=== PATIENT | male | born 1990 | race American Indian/Alaskan Native ===

== ENCOUNTER 2018-12-27 11:51 | Emergency (ER) | payer OTHER ==
--- NOTE | 2018-12-27 12:04 | EDM.PDOC ---
ED HPI GENERAL MEDICAL PROBLEM - General Stated Complaint: VIA [facility] Time Seen by Provider: 12/27/18 12:00 Source of Information: Reports: Patient, RN Notes Reviewed History Limitations: Reports: No Limitations - History of Present Illness INITIAL COMMENTS - FREE TEXT/NARRATIVE: 28-year-old male came up from [place] to get detox treatment. He was evaluated at [facility] last night and sent to [place], arriving at 5 AM. He feels he is "sicker than anyone else" so wanted to be admitted to the hospital and insisted he be sent in. He is vomiting the medicine they are giving him. No hallucinations, no unstable vital signs at this point. Onset: Unknown/Unsure Associated Symptoms: Reports: Nausea/Vomiting, Other (Abdominal cramps) Abdominal Pain Score (Numeric/FACES): 3 - Related Data Allergies Allergy/AdvReac Type Severity Reaction Status Date / Time azithromycin [From Zithromax] Allergy Cannot Verified 12/27/18 12:17 Remember Home Meds: Home Meds chlordiazePOXIDE HCl [Chlordiazepoxide HCl] 1 tab PO TID PRN 12/27/18 [History] ED ROS GENERAL - Review of Systems Review Of Systems: See Below Constitutional: Reports: Malaise, Decreased Appetite. Denies: Fever, Chills HEENT: Reports: No Symptoms Respiratory: Denies: Shortness of Breath Cardiovascular: Denies: Chest Pain GI/Abdominal: Reports: Abdominal Pain, Nausea, Vomiting Neurological: Reports: No Symptoms Psychiatric: Reports: Anxiety ED EXAM, GENERAL - Physical Exam Exam: See Below Exam Limited By: No Limitations General Appearance: Alert, No Apparent Distress (Neck distress but looks uncomfortable) Eye Exam: Bilateral Eye: Normal Inspection (No jaundice) Respiratory/Chest: No Respiratory Distress Cardiovascular: Regular Rate, Rhythm. No: Tachycardia GI/Abdominal: Normal Bowel Sounds, Tender (Some tenderness to palpation especially across the upper abdomen) Neurological: Alert, Oriented Psychiatric: Anxious Skin Exam: Warm, Dry Course - Vital Signs Last Recorded V/S: Last Vital Signs Temp 97.0 F 12/27/18 12:08 Pulse 62 12/27/18 12:08 Resp 24 H 12/27/18 12:08 BP 109/92 H 12/27/18 12:08 Pulse Ox 98 12/27/18 12:08 - Orders/Labs/Meds Meds: Medications Discontinued Medications Generic Name Dose Route Start Last Admin Trade Name Miguel Angel PRCindy Reason Stop Dose Admin Prochlorperazine Edisylate 10 mg 12/27/18 12:36 12/27/18 12:42 Compazine IM 12/27/18 12:37 10 mg ONETIME ONE Administration - Re-Assessments/Exams Free Text/Narrative Re-Assessment/Exam: 12/27/18 12:41 Explained the patient that he is physically stable at this time, if he does develop alcohol withdrawal serious enough that they can't handle at the detox center they will send him back. I discussed this with Dr. Arreguin and he wants him to have 10 mg of IM Compazine but return for inpatient detox instead of hospitalization at this point. 12/27/18 13:06 Patient was in the emergency room for over 1 hour and showed no nausea or vomiting while in the emergency room. He continued to be stable. There is no reason why detox at a treatment center can't be attempted first, and if he worsens or becomes too difficult to handle at the detox center they can send him back. Departure - Departure Time of Disposition: 12:55 Disposition: DC/Tfer to Other 70 Clinical Impression: Alcohol abuse - Discharge Information Instructions: Alcohol Use Disorder Referrals: PCP,None [Primary Care Provider] - Forms: ED Department Discharge Care Plan Goals: Return to [facility] to continue your detox treatment per protocol.
[2018-12-27] MEDS ORDERED: Prochlorperazine 10 MG/2 ML SDV IM ONE (12:36)
== END 2018-12-27 12:55 | disposition other institution (70) ==
LOC: JP.ED 11:51
DX: F10.10 Alcohol abuse, uncomplicated (principal); R10.10 Upper abdominal pain, unspecified; Z88.1 Allergy status to other antibiotic agents
CPT/HCPCS: 96372; 99284; J0780

== ENCOUNTER 2019-05-18 13:37 | Emergency (ER) | payer MEDICAID, OTHER ==
--- NOTE | 2019-05-18 14:19 | EDM.PDOCBH ---
ED HPI GENERAL MEDICAL PROBLEM - General Chief Complaint: Drug or Alcohol Abuse Stated Complaint: FROM [facility] Time Seen by Provider: 05/18/19 14:00 Source of Information: Reports: Patient, EMS History Limitations: Reports: No Limitations - History of Present Illness INITIAL COMMENTS - FREE TEXT/NARRATIVE: 28-year-old was placed in [place] detox yesterday from [place] who today asked to be sent back to the hospital because he was nauseated and "throwing up blood". This is a recurring pattern of behavior for this patient, he gets admitted and then requests to leave and get transferred somewhere else. His records were obtained from [facility], he was admitted on 13 May and left AMA on the , returned on 17 May with a blood alcohol of 0.277 and positive for methamphetamines. He has to be treated at detox, but has been there less than a day and is now leaving. Associated Symptoms: Reports: Nausea/Vomiting Abdomen Pain Score (Numeric/FACES): 4 - Related Data Allergies Allergy/AdvReac Type Severity Reaction Status Date / Time azithromycin [From Zithromax] Allergy Cannot Verified 05/18/19 13:43 Remember Home Meds: Home Meds chlordiazePOXIDE HCl [Chlordiazepoxide HCl] 1 tab PO TID PRN 12/27/18 [History] Past Medical History Respiratory History: Reports: Asthma Gastrointestinal History: Reports: GERD Neurological History: Reports: Seizure Psychiatric History: Reports: Addiction, Anxiety, Panic Attack, Suicide Attempt , Suicidal Ideation - Infectious Disease History Infectious Disease History: Reports: Chicken Pox - Past Surgical History GI Surgical History: Reports: EGD Social & Family History - Tobacco Use Smoking Status *Q: Current Every Day Smoker Years of Tobacco use: 10 Packs/Tins Daily: 0.5 - Caffeine Use Caffeine Use: Reports: Coffee - Recreational Drug Use Recreational Drug Use: Yes Drug Use in Last 12 Months: Yes Recreational Drug Type: Reports: Marijuana/Hashish, Methamphetamine Recreational Drug Use Frequency: Monthly ED ROS GENERAL - Review of Systems Review Of Systems: See Below Constitutional: Reports: Malaise, Decreased Appetite. Denies: Fever, Chills Respiratory: Denies: Shortness of Breath Cardiovascular: Denies: Chest Pain GI/Abdominal: Reports: Abdominal Pain, Nausea, Vomiting Skin: Reports: No Symptoms Psychiatric: Reports: Anxiety ED EXAM, BEHAVIORAL HEALTH - Physical Exam Exam: See Below Exam Limited By: No Limitations General Appearance: Alert, No Apparent Distress Eye Exam: Bilateral Eye: Normal Inspection (No jaundice) Head: Atraumatic Respiratory/Chest: No Respiratory Distress, Lungs Clear Cardiovascular: Regular Rate, Rhythm. No: Tachycardia GI/Abdominal: Soft, Tender (Reacts with tenderness to palpation across the upper abdomen) COURSE, BEHAVIORAL HEALTH COMP - Course Vital Signs: Last Vital Signs Temp 96.4 F 05/18/19 14:00 Pulse 67 05/18/19 14:00 Resp 20 05/18/19 14:00 BP 119/59 L 05/18/19 14:00 Pulse Ox 100 05/18/19 14:00 Orders, Labs, Meds: Laboratory Tests 05/18/19 05/18/19 Range/Units 13:59 13:59 WBC 7.8 (4.5-11.0) K/uL RBC 5.41 (4.30-5.90) M/uL Hgb 15.3 H (12.0-15.0) g/dL Hct 46.0 (40.0-54.0) % MCV 85 (80-98) fL MCH 28 (27-31) pg MCHC 33 (32-36) % Plt Count 231 (150-400) K/uL Neut % (Auto) 64 (36-66) % Lymph % (Auto) 22 L (24-44) % [place] % (Auto) 12 H (2-6) % Eos % (Auto) 2 (2-4) % Baso % (Auto) 1 (0-1) % Lipase 160 (73-393) U/L Re-Assessment/Re-Exam: The detox center refuses to take the patient back because of previous similar episodes. Patient called someone who came and got him and give him a ride. Departure - Departure Time of Disposition: 14:25 Disposition: Home, Self-Care 01 Clinical Impression: Alcohol abuse - Discharge Information Instructions: Alcohol Use Disorder Referrals: PCP,None [Primary Care Provider] - Forms: ED Department Discharge Care Plan Goals: 40 mg of omeprazole daily, and avoid further intake of alcohol. Sepsis Event Note - Evaluation Sepsis Screening Result: No Definite Risk - Focused Exam Vital Signs: Vital Signs Temp Temp Pulse Resp BP Pulse Ox 05/18/19 14:00 96.4 F 96.4 F 64 16 119/59 L 100 Date Exam was Performed: 05/18/19 Time Exam was Performed: 14:23
== END 2019-05-18 14:25 | disposition home or self-care (01) ==
LOC: JP.ED 13:37
DX: F10.10 Alcohol abuse, uncomplicated (principal); F17.210 Nicotine dependence, cigarettes, uncomplicated; J45.909 Unspecified asthma, uncomplicated; Z88.1 Allergy status to other antibiotic agents
CPT/HCPCS: 36415; 83690; 85025; 99282; 99284

== ENCOUNTER 2022-04-05 22:59 | Emergency (ER) | payer OTHER | END 2022-04-05 23:36 | LOC: JP.ED 22:59 | DX: F10.120 Alcohol abuse with intoxication, uncomplicated (principal); J45.909 Unspecified asthma, uncomplicated; Z02.89 Encounter for other administrative examinations; Z72.0 Tobacco use; Z88.1 Allergy status to other antibiotic agents | CPT/HCPCS: 99283 ==

== ENCOUNTER 2022-04-06 18:21 | Emergency (ER) | payer SELFPAY ==
[~2022-04-06 18:21] MED LIST: LORazepam 1 MG Tab PO SCH
[2022-04-06] MEDS ORDERED: LORazepam 1 MG Tab ONE (20:15)
== END 2022-04-06 20:50 | disposition home or self-care (01) ==
LOC: JP.ED 18:21
DX: F10.139 Alcohol abuse with withdrawal, unspecified (principal); Z88.1 Allergy status to other antibiotic agents; Z72.0 Tobacco use
CPT/HCPCS: 99284; A9270

== ENCOUNTER 2022-08-24 21:37 | Emergency (ER) | payer SELFPAY | END 2022-08-24 22:46 | LOC: JP.ED 21:37 | DX: F10.220 Alcohol dependence with intoxication, uncomplicated (principal); F17.210 Nicotine dependence, cigarettes, uncomplicated; J45.909 Unspecified asthma, uncomplicated; Z88.1 Allergy status to other antibiotic agents | CPT/HCPCS: 99283 ==

== ENCOUNTER 2022-09-03 15:47 | Emergency (ER) | payer SELFPAY ==
[2022-09-03] MEDS ORDERED: diphenhydrAMINE 50 MG/ML SDV IM ONE (15:50)
[2022-09-03] MEDS ORDERED: Haloperidol Lactate 5 MG/ML SDV IM ONE (15:50)
[2022-09-03 16:15] LABS: BASOPHILS ABSOLUTE AUTO 0.06 K/uL (0.00-0.10); BASOPHILS PERCENT AUTO 0.8 % (0.1-1.3); EOSINOPHILS ABSOLUTE AUTO 0.06 K/uL (0.00-0.40); EOSINOPHILS PERCENT AUTO 0.8 % (0.0-5.4); HEMATOCRIT 42.9 % (38.4-49.7); HEMOGLOBIN 14.5 g/dL (12.9-16.9); IMMATURE GRAN ABSOLUTE AUTO 0.03 K/uL (0.00-0.23); IMMATURE GRAN PERCENT AUTO 0.4 % (0.0-0.7); LYMPHOCYTES ABSOLUTE AUTO 2.79 K/uL (0.8-3.3); LYMPHOCYTES PERCENT AUTO 36.2 % (11.4-47.7); MEAN CORPUSCULAR HEMOGLOBIN 29.3 pg (31.6-35.5); MEAN CORPUSCULAR HGB CONC 33.8 g/dL (31.6-35.5); MEAN CORPUSCULAR VOLUME 86.7 fL (81.4-99.0); MONOCYTES ABSOLUTE AUTO 0.76 K/uL (0.20-0.90); MONOCYTES PERCENT AUTO 9.9 % (3.3-12.6); NEUTROPHILS PERCENT AUTO 51.9 % (40.0-78.1); PLATELET COUNT,PLT 302 K/uL (130-375); RED BLOOD CELL COUNT 4.95 M/uL (4.14-5.76); WHITE BLOOD CELL COUNT,WBC 7.7 K/uL (3.2-11.0)
[2022-09-03 16:43] LABS: A/G RATIO 1.1 (1.2-2.2); ALANINE AMINOTRANSFERASE,ALT 65 U/L (12-78); ALBUMIN 3.9 g/dL (3.4-5.0); ALKALINE PHOSPHATASE 71 U/L (46-116); ASPARTATE AMNIOTRANSFERASE,AST 211 U/L (15-37); BILIRUBIN TOTAL 0.7 mg/dL (0.2-1.0); BLOOD UREA NITROGEN,BUN 12 mg/dL (7-18); CALCIUM 8.9 mg/dL (8.5-10.1); CARBON DIOXIDE,CO2 27 mmol/L (21-32); CHLORIDE,CL 103 mmol/L (100-108); CREATININE 0.9 mg/dL (0.8-1.3); EST CRCL DRUG DOSING (CG) 128.14 mL/min; ESTIMATED GFR 116 mL/min (>60); GLUCOSE RANDOM 110 mg/dL (74-106); POTASSIUM,K 3.4 mmol/L (3.6-5.2); PROTEIN TOTAL,TP 7.6 g/dL (6.4-8.2); SODIUM,NA 140 mmol/L (140-148)
[2022-09-03 16:44] LABS: ANION GAP 13.4 mmol/L (5.0-14.0)
[2022-09-03 22:51] LABS: AMPHETAMINES SCREEN, URINE NEGATIVE (NEGATIVE); BARBITURATE SCREEN,URINE PRESUMPTIVE POSITIVE (NEGATIVE); BENZODIAZEPINES SCREEN,URINE PRESUMPTIVE POSITIVE (NEGATIVE); METHADONE SCREEN, URINE NEGATIVE (NEGATIVE); METHAMPHETAMINES SCREEN, URINE NEGATIVE (NEGATIVE); OXYCODONE SCREEN,URINE NEGATIVE (NEGATIVE); PROPOXYPHENE SCREEN,URINE NEGATIVE (NEGATIVE); THC SCREEN,URINE 50 NG/ML NEGATIVE (NEGATIVE)
[2022-09-04] MEDS ORDERED: LORazepam 1 MG Tab PO ONE (04:46)
== END 2022-09-04 06:05 | disposition home or self-care (01) ==
LOC: JP.ED 15:47
DX: R45.1 Restlessness and agitation (principal); F10.920 Alcohol use, unspecified with intoxication, uncomplicated; J45.909 Unspecified asthma, uncomplicated; Z88.1 Allergy status to other antibiotic agents; Z20.822 Contact with and (suspected) exposure to COVID-19
CPT/HCPCS: 36415; 80053; 80305; 80307; 84443; 85025; 87635; 96372; 99285; A9270; J1200; J1630; U0002

== ENCOUNTER 2023-03-20 08:32 | Emergency (ER) | payer OTHER ==
[2023-03-20] MEDS ORDERED: LORazepam 2 MG/ML SDV IVPUSH ONE (08:58)
[2023-03-20] MEDS ORDERED: MVI, Adult with Vitamin K 10 ML, Thiamine 200 MG, Folic Acid 1 MG, Magnesium Sulfate 2 ... IV ONE ×5 (08:58)
[2023-03-20] MEDS ORDERED: Sodium Chloride 0.9% 10 ML Syringe FLUSH PRN (09:00)
[2023-03-20] MEDS ORDERED: Pantoprazole 40 MG Vial IVPUSH ONE (09:01)
[2023-03-20 09:14] LABS: BASOPHILS ABSOLUTE AUTO 0.03 K/uL (0.00-0.10); BASOPHILS PERCENT AUTO 0.4 % (0.1-1.3); EOSINOPHILS ABSOLUTE AUTO 0.29 K/uL (0.00-0.40); EOSINOPHILS PERCENT AUTO 4.2 % (0.0-5.4); IMMATURE GRAN ABSOLUTE AUTO 0.03 K/uL (0.00-0.23); IMMATURE GRAN PERCENT AUTO 0.4 % (0.0-0.7); LYMPHOCYTES ABSOLUTE AUTO 1.07 K/uL (0.8-3.3); LYMPHOCYTES PERCENT AUTO 15.6 % (11.4-47.7); MEAN CORPUSCULAR HGB CONC 34.2 g/dL (31.6-35.5); MEAN CORPUSCULAR VOLUME 87.6 fL (81.4-99.0); MONOCYTES ABSOLUTE AUTO 0.58 K/uL (0.20-0.90); MONOCYTES PERCENT AUTO 8.5 % (3.3-12.6); NEUTROPHILS ABSOLUTE AUTO 4.85 K/uL (1.0-7.6); NEUTROPHILS PERCENT AUTO 70.9 % (40.0-78.1); PLATELET COUNT,PLT 162 K/uL (130-375); RED BLOOD CELL COUNT 4.34 M/uL (4.14-5.76); WHITE BLOOD CELL COUNT,WBC 6.9 K/uL (3.2-11.0)
[2023-03-20 09:32] LABS: PROTHROMBIN TIME 9.8 sec (9.2-10.6)
[2023-03-20 09:36] LABS: ALANINE AMINOTRANSFERASE,ALT 26 U/L (12-78); ALBUMIN 3.6 g/dL (3.4-5.0); ALKALINE PHOSPHATASE 76 U/L (46-116); ASPARTATE AMNIOTRANSFERASE,AST 57 U/L (15-37); BILIRUBIN TOTAL 0.6 mg/dL (0.2-1.0); BLOOD UREA NITROGEN,BUN 12 mg/dL (7-18); CALCIUM 8.1 mg/dL (8.5-10.1); CARBON DIOXIDE,CO2 27 mmol/L (21-32); CHLORIDE,CL 103 mmol/L (100-108); CREATININE 0.7 mg/dL (0.8-1.3); EST CRCL DRUG DOSING (CG) 163.21 mL/min; ESTIMATED GFR 124 mL/min (>60); GLUCOSE RANDOM 91 mg/dL (74-106); POTASSIUM,K 3.7 mmol/L (3.6-5.2); PROTEIN TOTAL,TP 7.2 g/dL (6.4-8.2); SODIUM,NA 137 mmol/L (140-148)
[2023-03-20 09:46] LABS: ANION GAP 10.7 mmol/L (5.0-14.0)
== END 2023-03-20 10:35 ==
LOC: JP.ED 08:32
DX: F10.930 Alcohol use, unspecified with withdrawal, uncomplicated (principal); F17.210 Nicotine dependence, cigarettes, uncomplicated; Z88.1 Allergy status to other antibiotic agents
CPT/HCPCS: 36415; 80053; 80307; 85025; 85610; 96365; 96375; 99283; 99285-25; C9113; J2060; J3411; J3475; J3490; J7121

== ENCOUNTER 2023-08-27 14:04 | Inpatient (IN) | payer MEDICAID, OTHER ==
[2023-08-27 14:43] LABS: BASOPHILS ABSOLUTE AUTO 0.08 K/uL (0.00-0.10); BASOPHILS PERCENT AUTO 0.8 % (0.1-1.3); EOSINOPHILS PERCENT AUTO 2.9 % (0.0-5.4); HEMATOCRIT 40.2 % (38.4-49.7); HEMOGLOBIN 13.4 g/dL (12.9-16.9); IMMATURE GRAN ABSOLUTE AUTO 0.06 K/uL (0.00-0.23); IMMATURE GRAN PERCENT AUTO 0.6 % (0.0-0.7); LYMPHOCYTES ABSOLUTE AUTO 1.23 K/uL (0.8-3.3); LYMPHOCYTES PERCENT AUTO 11.8 % (11.4-47.7); MEAN CORPUSCULAR HGB CONC 33.3 g/dL (31.6-35.5); MEAN CORPUSCULAR VOLUME 83.9 fL (81.4-99.0); MONOCYTES ABSOLUTE AUTO 0.71 K/uL (0.20-0.90); MONOCYTES PERCENT AUTO 6.8 % (3.3-12.6); NEUTROPHILS ABSOLUTE AUTO 8.07 K/uL (1.0-7.6); NEUTROPHILS PERCENT AUTO 77.1 % (40.0-78.1); PLATELET COUNT,PLT 286 K/uL (130-375); RED BLOOD CELL COUNT 4.79 M/uL (4.14-5.76); WHITE BLOOD CELL COUNT,WBC 10.5 K/uL (3.2-11.0)
[2023-08-27] MEDS: Sodium Chloride 0.9% 10 ML Syringe FLUSH PRN (14:45)
[2023-08-27] MEDS: Sodium Chloride 0.9% 1,000 ML IV SCH (14:46)
[2023-08-27] MEDS: Prochlorperazine 10 MG/2 ML SDV IVPUSH ONE (15:00)
[2023-08-27 15:08] LABS: A/G RATIO 0.7 (1.2-2.2); ALANINE AMINOTRANSFERASE,ALT 28 U/L (12-78); ALBUMIN 3.4 g/dL (3.4-5.0); ALKALINE PHOSPHATASE 87 U/L (46-116); ANION GAP 13.7 mmol/L (5.0-14.0); ASPARTATE AMNIOTRANSFERASE,AST 27 U/L (15-37); BILIRUBIN TOTAL 1.1 mg/dL (0.2-1.0); BLOOD UREA NITROGEN,BUN 12 mg/dL (7-18); CALCIUM 8.5 mg/dL (8.5-10.1); CARBON DIOXIDE,CO2 27 mmol/L (21-32); CHLORIDE,CL 101 mmol/L (100-108); CREATININE 0.8 mg/dL (0.8-1.3); EST CRCL DRUG DOSING (CG) 142.81 mL/min; ESTIMATED GFR 119 mL/min (>60); GLUCOSE RANDOM 106 mg/dL (74-106); POTASSIUM,K 3.7 mmol/L (3.6-5.2); SODIUM,NA 138 mmol/L (140-148)
[2023-08-27] MEDS: LORazepam 2 MG/ML SDV IVPUSH ONE (15:52)
[2023-08-27] MEDS: Magnesium Sulfate/Water 2 GM in Premix Bag 1 BAG IV ONE (16:15)
[2023-08-27] MEDS ORDERED: LORazepam 2 MG/ML SDV IV SCH (16:56)
[2023-08-27] MEDS ORDERED: Ondansetron 4 MG/2 ML SDV IV PRN (16:56)
[2023-08-27] MEDS ORDERED: Haloperidol Lactate 5 MG/ML SDV IVPUSH PRN (16:56)
[2023-08-27] MEDS ORDERED: Magnesium Hydroxide 400 MG/5 ML Susp 30 ML Cup PO PRN (16:56)
[2023-08-27] MEDS ORDERED: Sennosides/Docusate Sodium 50-8.6 MG Tab PO PRN (16:56)
[2023-08-27] MEDS ORDERED: LORazepam 2 MG/ML SDV IV PRN (16:56)
[2023-08-27] MEDS: Pantoprazole 40 MG Vial IV ONE (17:46)
[2023-08-27] MEDS: MVI, Adult with Vitamin K 10 ML, Thiamine 100 MG, Folic Acid 1 MG, Magnesium Sulfate 3 ... IV ONE (17:51)
[2023-08-27] MEDS: LORazepam 1 MG Tab PO SCH (19:57)
[2023-08-27] MEDS: Gabapentin 100 MG Cap PO SCH (21:14)
[2023-08-27] MEDS: Melatonin 3 MG Tab PO SCH (21:14)
[2023-08-27] MEDS: Enoxaparin 40 MG/0.4 ML Syringe SUBCUT SCH (21:14)
[2023-08-27] MEDS: Magnesium Sulfate/Water 2 GM in Premix Bag 1 BAG IV SCH (22:04)
[2023-08-27] MEDS: NS + KCl 20mEq/L 1,000 ML IV SCH (22:06)
[2023-08-28 05:02] LABS: HEMATOCRIT 38.2 % (38.4-49.7); MEAN CORPUSCULAR HEMOGLOBIN 28.7 pg (31.6-35.5); MEAN CORPUSCULAR VOLUME 84.3 fL (81.4-99.0); RED BLOOD CELL COUNT 4.53 M/uL (4.14-5.76); WHITE BLOOD CELL COUNT,WBC 9.4 K/uL (3.2-11.0)
[2023-08-28 05:28] LABS: A/G RATIO 0.7 (1.2-2.2); ALANINE AMINOTRANSFERASE,ALT 26 U/L (12-78); ALBUMIN 2.8 g/dL (3.4-5.0); ALKALINE PHOSPHATASE 74 U/L (46-116); ASPARTATE AMNIOTRANSFERASE,AST 24 U/L (15-37); BILIRUBIN TOTAL 1.2 mg/dL (0.2-1.0); BLOOD UREA NITROGEN,BUN 10 mg/dL (7-18); CALCIUM 7.9 mg/dL (8.5-10.1); CARBON DIOXIDE,CO2 27 mmol/L (21-32); CHLORIDE,CL 102 mmol/L (100-108); CREATININE 0.6 mg/dL (0.8-1.3); EST CRCL DRUG DOSING (CG) 190.67 mL/min; ESTIMATED GFR 130 mL/min (>60); GLUCOSE RANDOM 111 mg/dL (74-106); POTASSIUM,K 3.6 mmol/L (3.6-5.2); PROTEIN TOTAL,TP 7.1 g/dL (6.4-8.2); SODIUM,NA 135 mmol/L (140-148)
[2023-08-28 05:30] LABS: ANION GAP 9.6 mmol/L (5.0-14.0)
[2023-08-28] MEDS: Pantoprazole 40 MG Tab.CR PO SCH (07:23)
[2023-08-28] MEDS: Folic Acid 1 MG Tab PO SCH (08:37)
[2023-08-28] MEDS: Thiamine 100 MG Tab PO SCH (08:37)
[2023-08-28] MEDS: Ketorolac 30 MG/ML SDV IVPUSH PRN (09:38)
[2023-08-28] MEDS: Ondansetron 4 MG Tab.DIS PO PRN (09:48)
[2023-08-28] MEDS: Triamcinolone Acetonide 0.1% Oint 15 GM Tube TOP SCH (10:02)
[2023-08-28] MEDS: Acetaminophen 325 MG Tab PO PRN (13:57)
== END 2023-08-28 17:43 | disposition home or self-care (01) | DRG 897 ==
LOC: JP.ED 14:04 → JP.ICU 16:24
PROVIDERS: ADMIT Internal Medicine; ATTEND Internal Medicine
DX: F10.931 Alcohol use, unspecified with withdrawal delirium (principal); R44.0 Auditory hallucinations; K21.9 Gastro-esophageal reflux disease without esophagitis; R44.1 Visual hallucinations; J45.909 Unspecified asthma, uncomplicated; F41.0 Panic disorder [episodic paroxysmal anxiety]; R56.9 Unspecified convulsions; E83.42 Hypomagnesemia; F17.210 Nicotine dependence, cigarettes, uncomplicated; Z88.1 Allergy status to other antibiotic agents
CPT/HCPCS: 36415; 80053; 80307; 83735; 85025; 85027; 93010; 96361; 96374; 96375; 99223; 99238; 99285-25; A9270-GY; C9113; J0780; J1650; J1885; J2060; J3411; J3475; J3480; J3490; J7030; Q0162

== ENCOUNTER 2023-11-01 11:07 | Emergency (ER) | payer MEDICAID, OTHER ==
[2023-11-01 15:12] LABS: AMPHETAMINES SCREEN, URINE PRESUMPTIVE POSITIVE (NEGATIVE); BARBITURATE SCREEN,URINE NEGATIVE (NEGATIVE); BENZODIAZEPINES SCREEN,URINE PRESUMPTIVE POSITIVE (NEGATIVE); METHADONE SCREEN, URINE NEGATIVE (NEGATIVE); METHAMPHETAMINES SCREEN, URINE PRESUMPTIVE POSITIVE (NEGATIVE); OXYCODONE SCREEN,URINE NEGATIVE (NEGATIVE); PROPOXYPHENE SCREEN,URINE NEGATIVE (NEGATIVE); THC SCREEN,URINE 50 NG/ML PRESUMPTIVE POSITIVE (NEGATIVE)
[2023-11-01 15:13] LABS: A/G RATIO 0.9 (1.2-2.2); ALANINE AMINOTRANSFERASE,ALT 46 U/L (12-78); ALBUMIN 3.7 g/dL (3.4-5.0); ALKALINE PHOSPHATASE 79 U/L (46-116); ANION GAP 9.5 mmol/L (5.0-14.0); ASPARTATE AMNIOTRANSFERASE,AST 42 U/L (15-37); BILIRUBIN TOTAL 0.5 mg/dL (0.2-1.0); BLOOD UREA NITROGEN,BUN 12 mg/dL (7-18); CALCIUM 8.5 mg/dL (8.5-10.1); CARBON DIOXIDE,CO2 31 mmol/L (21-32); CHLORIDE,CL 106 mmol/L (100-108); CREATININE 0.8 mg/dL (0.8-1.3); ESTIMATED GFR 119 mL/min (>60); GLUCOSE RANDOM 102 mg/dL (74-106); HEMATOCRIT 44.8 % (38.4-49.7); HEMOGLOBIN 15.2 g/dL (12.9-16.9); MEAN CORPUSCULAR HEMOGLOBIN 28.3 pg (31.6-35.5); MEAN CORPUSCULAR HGB CONC 33.9 g/dL (31.6-35.5); MEAN CORPUSCULAR VOLUME 83.3 fL (81.4-99.0); POTASSIUM,K 3.7 mmol/L (3.6-5.2); PROTEIN TOTAL,TP 7.8 g/dL (6.4-8.2); RED BLOOD CELL COUNT 5.38 M/uL (4.14-5.76); SODIUM,NA 146 mmol/L (140-148); WHITE BLOOD CELL COUNT,WBC 6.4 K/uL (3.2-11.0)
== END 2023-11-01 12:32 ==
LOC: JP.ED 11:08
DX: Z02.89 Encounter for other administrative examinations (principal)
CPT/HCPCS: 36415; 80053; 80305-QW; 80307; 85027; 99285

== ENCOUNTER 2023-11-01 15:33 | Emergency (ER) | payer MEDICAID, OTHER | END 2023-11-01 16:07 | disposition left against medical advice (07) | LOC: JP.ED 15:33 | DX: Z53.21 Procedure and treatment not carried out due to patient leaving prior to being seen by health care provider (principal) ==

== ENCOUNTER 2023-11-01 18:55 | Emergency (ER) | payer MEDICAID, OTHER ==
[2023-11-01 21:53] LABS: HEMATOCRIT 43.1 % (38.4-49.7)
[2023-11-01] MEDS: Pantoprazole 40 MG Tab.CR PO ONE (23:28)
[2023-11-02 01:49] LABS: HEMATOCRIT 42.7 % (38.4-49.7); HEMOGLOBIN 14.5 g/dL (12.9-16.9)
[2023-11-02] MEDS: Thiamine 100 MG Tab PO ONE (02:18)
[2023-11-02] MEDS: Multivitamins with Iron/Calcium/Folic Acid/Minerals Tab PO ONE (02:18)
[2023-11-02] MEDS: Folic Acid 1 MG Tab PO ONE (02:18)
[2023-11-02] MEDS: LORazepam 1 MG Tab PO ONE (02:18)
== END 2023-11-02 08:47 ==
LOC: JP.ED 18:55
DX: F15.10 Other stimulant abuse, uncomplicated (principal); F10.229 Alcohol dependence with intoxication, unspecified; J45.909 Unspecified asthma, uncomplicated; Z88.1 Allergy status to other antibiotic agents; Z88.8 Allergy status to other drugs, medicaments and biological substances
CPT/HCPCS: 36415; 80307; 85014; 85018; 86850; 86900; 86901; 99285; A9270

== ENCOUNTER 2024-03-07 20:27 | Emergency (ER) | payer MEDICAID ==
[2024-03-07 21:19] LABS: BASOPHILS ABSOLUTE AUTO 0.08 K/uL (0.00-0.10); BASOPHILS PERCENT AUTO 0.9 % (0.1-1.3); EOSINOPHILS ABSOLUTE AUTO 0.14 K/uL (0.00-0.40); EOSINOPHILS PERCENT AUTO 1.5 % (0.0-5.4); HEMATOCRIT 42.1 % (38.4-49.7); HEMOGLOBIN 14.2 g/dL (12.9-16.9); IMMATURE GRAN PERCENT AUTO 1.1 % (0.0-0.7); LYMPHOCYTES PERCENT AUTO 27.3 % (11.4-47.7); MEAN CORPUSCULAR HEMOGLOBIN 29.5 pg (31.6-35.5); MEAN CORPUSCULAR HGB CONC 33.7 g/dL (31.6-35.5); MEAN CORPUSCULAR VOLUME 87.5 fL (81.4-99.0); MONOCYTES ABSOLUTE AUTO 0.68 K/uL (0.20-0.90); MONOCYTES PERCENT AUTO 7.4 % (3.3-12.6); NEUTROPHILS ABSOLUTE AUTO 5.66 K/uL (1.0-7.6); NEUTROPHILS PERCENT AUTO 61.8 % (40.0-78.1); PLATELET COUNT,PLT 309 K/uL (130-375); RED BLOOD CELL COUNT 4.81 M/uL (4.14-5.76); WHITE BLOOD CELL COUNT,WBC 9.2 K/uL (3.2-11.0)
[2024-03-07 21:36] LABS: PROTHROMBIN TIME 10.4 sec (9.2-10.6)
[2024-03-07 21:40] LABS: ALANINE AMINOTRANSFERASE,ALT 23 U/L (12-78); ALBUMIN 3.6 g/dL (3.4-5.0); ALKALINE PHOSPHATASE 59 U/L (46-116); ANION GAP 9.3 mmol/L (5.0-14.0); ASPARTATE AMNIOTRANSFERASE,AST 16 U/L (15-37); BILIRUBIN TOTAL 0.3 mg/dL (0.2-1.0); BLOOD UREA NITROGEN,BUN 16 mg/dL (7-18); CALCIUM 8.7 mg/dL (8.5-10.1); CARBON DIOXIDE,CO2 29 mmol/L (21-32); CHLORIDE,CL 107 mmol/L (100-108); CREATININE 0.8 mg/dL (0.8-1.3); EST CRCL DRUG DOSING (CG) 141.46 mL/min; ESTIMATED GFR 118 mL/min (>60); GLUCOSE RANDOM 100 mg/dL (74-106); POTASSIUM,K 3.8 mmol/L (3.6-5.2); PROTEIN TOTAL,TP 7.3 g/dL (6.4-8.2); SODIUM,NA 145 mmol/L (140-148)
[2024-03-07] MEDS: Sodium Chloride 0.9% 1,000 ML IV SCH (21:45)
[2024-03-07] MEDS: LORazepam 2 MG/ML SDV IVPUSH ONE (21:49)
[2024-03-08] MEDS: Diazepam 2 MG Tab PO ONE (06:43)
== END 2024-03-08 07:00 | disposition left against medical advice (07) ==
LOC: JP.ED 20:27
DX: F10.239 Alcohol dependence with withdrawal, unspecified (principal); J45.909 Unspecified asthma, uncomplicated; Z88.1 Allergy status to other antibiotic agents
CPT/HCPCS: 36415; 80053; 85025; 85610; 96361; 96374; 99283; 99285; A9270; J2060; J7030

== ENCOUNTER 2024-06-11 14:27 | Emergency (ER) | payer MEDICAID | END 2024-06-11 15:47 | disposition home or self-care (01) | LOC: JP.ED 14:27 | DX: M23.52 Chronic instability of knee, left knee (principal); F17.210 Nicotine dependence, cigarettes, uncomplicated; Z79.899 Other long term (current) drug therapy; Z88.1 Allergy status to other antibiotic agents | CPT/HCPCS: 99283 ==

== ENCOUNTER 2024-06-11 21:46 | Emergency (ER) | payer MEDICAID ==
[2024-06-11] MEDS ORDERED: Lidocaine 1% with EPINEPHrine 1:100,000 20 ML MDV INJECT ONE (21:49)
[2024-06-11] MEDS: Alum Hydrox/Mag Hydrox/Simeth 15 ML, Lidocaine 2% 15 ML PO ONE (22:45)
[2024-06-11 22:49] LABS: BASOPHILS ABSOLUTE AUTO 0.07 K/uL (0.00-0.10); BASOPHILS PERCENT AUTO 0.7 % (0.1-1.3); EOSINOPHILS ABSOLUTE AUTO 0.22 K/uL (0.00-0.40); EOSINOPHILS PERCENT AUTO 2.3 % (0.0-5.4); HEMATOCRIT 39.7 % (38.4-49.7); HEMOGLOBIN 13.5 g/dL (12.9-16.9); IMMATURE GRAN ABSOLUTE AUTO 0.03 K/uL (0.00-0.23); IMMATURE GRAN PERCENT AUTO 0.3 % (0.0-0.7); LYMPHOCYTES ABSOLUTE AUTO 2.57 K/uL (0.8-3.3); LYMPHOCYTES PERCENT AUTO 27.2 % (11.4-47.7); MEAN CORPUSCULAR HEMOGLOBIN 29.7 pg (31.6-35.5); MEAN CORPUSCULAR VOLUME 87.3 fL (81.4-99.0); MONOCYTES ABSOLUTE AUTO 1.05 K/uL (0.20-0.90); MONOCYTES PERCENT AUTO 11.1 % (3.3-12.6); NEUTROPHILS ABSOLUTE AUTO 5.51 K/uL (1.0-7.6); NEUTROPHILS PERCENT AUTO 58.4 % (40.0-78.1); PLATELET COUNT,PLT 302 K/uL (130-375); RED BLOOD CELL COUNT 4.55 M/uL (4.14-5.76); WHITE BLOOD CELL COUNT,WBC 9.5 K/uL (3.2-11.0)
[2024-06-11 23:06] LABS: ANION GAP 12.3 mmol/L (5.0-14.0); CALCIUM 9.4 mg/dL (8.5-10.1); CREATININE 0.9 mg/dL (0.8-1.3); EST CRCL DRUG DOSING (CG) 125.74 mL/min; POTASSIUM,K 3.6 mmol/L (3.6-5.2)
[2024-06-12] MEDS: Ondansetron 4 MG Tab.DIS PO ONE (06:21)
== END 2024-06-12 06:42 | disposition home or self-care (01) ==
LOC: JP.ED 21:46
DX: K29.20 Alcoholic gastritis without bleeding (principal); F10.120 Alcohol abuse with intoxication, uncomplicated; F17.210 Nicotine dependence, cigarettes, uncomplicated; Z88.1 Allergy status to other antibiotic agents; Z79.899 Other long term (current) drug therapy; Z86.16 Personal history of COVID-19; Y90.9 Presence of alcohol in blood, level not specified
CPT/HCPCS: 36415; 80048; 80307; 83690; 85025; 99284; A9270; Q0162

== ENCOUNTER 2024-06-23 11:07 | Emergency (ER) | payer MEDICAID ==
[2024-06-23] MEDS ORDERED: Sodium Chloride 0.9% 10 ML Syringe FLUSH PRN (11:30)
[2024-06-23 11:44] LABS: BASOPHILS ABSOLUTE AUTO 0.05 K/uL (0.00-0.10); BASOPHILS PERCENT AUTO 0.9 % (0.1-1.3); EOSINOPHILS ABSOLUTE AUTO 0.27 K/uL (0.00-0.40); EOSINOPHILS PERCENT AUTO 4.9 % (0.0-5.4); HEMATOCRIT 38.8 % (38.4-49.7); HEMOGLOBIN 13.2 g/dL (12.9-16.9); IMMATURE GRAN ABSOLUTE AUTO 0.06 K/uL (0.00-0.23); IMMATURE GRAN PERCENT AUTO 1.1 % (0.0-0.7); LYMPHOCYTES PERCENT AUTO 34.5 % (11.4-47.7); MEAN CORPUSCULAR HEMOGLOBIN 29.9 pg (31.6-35.5); MONOCYTES ABSOLUTE AUTO 0.44 K/uL (0.20-0.90); NEUTROPHILS ABSOLUTE AUTO 2.78 K/uL (1.0-7.6); NEUTROPHILS PERCENT AUTO 50.6 % (40.0-78.1); PLATELET COUNT,PLT 257 K/uL (130-375); RED BLOOD CELL COUNT 4.41 M/uL (4.14-5.76); WHITE BLOOD CELL COUNT,WBC 5.5 K/uL (3.2-11.0)
[2024-06-23 11:44] LABS: AMPHETAMINES SCREEN, URINE NEGATIVE (NEGATIVE); BARBITURATE SCREEN,URINE NEGATIVE (NEGATIVE); BENZODIAZEPINES SCREEN,URINE PRESUMPTIVE POSITIVE (NEGATIVE); METHADONE SCREEN, URINE NEGATIVE (NEGATIVE); METHAMPHETAMINES SCREEN, URINE NEGATIVE (NEGATIVE); OXYCODONE SCREEN,URINE NEGATIVE (NEGATIVE); PROPOXYPHENE SCREEN,URINE NEGATIVE (NEGATIVE); THC SCREEN,URINE 50 NG/ML PRESUMPTIVE POSITIVE (NEGATIVE)
[2024-06-23 12:07] LABS: ALANINE AMINOTRANSFERASE,ALT 23 U/L (12-78); ALBUMIN 3.5 g/dL (3.4-5.0); ALKALINE PHOSPHATASE 82 U/L (46-116); ASPARTATE AMNIOTRANSFERASE,AST 26 U/L (15-37); BILIRUBIN TOTAL 0.5 mg/dL (0.2-1.0); BLOOD UREA NITROGEN,BUN 8 mg/dL (7-18); CALCIUM 8.3 mg/dL (8.5-10.1); CARBON DIOXIDE,CO2 29 mmol/L (21-32); CHLORIDE,CL 110 mmol/L (100-108); CREATININE 0.8 mg/dL (0.8-1.3); EST CRCL DRUG DOSING (CG) 141.46 mL/min; ESTIMATED GFR 118 mL/min (>60); GLUCOSE RANDOM 109 mg/dL (74-106); POTASSIUM,K 3.8 mmol/L (3.6-5.2); PROTEIN TOTAL,TP 6.9 g/dL (6.4-8.2); SODIUM,NA 146 mmol/L (140-148)
[2024-06-23 12:15] LABS: ANION GAP 10.8 mmol/L (5.0-14.0); C-REACTIVE PROTEIN < 0.50 mg/dL (<0.50)
[2024-06-23] MEDS: Sodium Chloride 0.9% 1,000 ML IV ONE (12:38)
[2024-06-23] MEDS: Pantoprazole 40 MG Vial IVPUSH ONE (12:38)
[2024-06-23] MEDS: Iopamidol 612 MG/ML 100 ML Bottle IV PRN (12:51)
[2024-06-23] MEDS: Sodium Chloride 0.9% 80 ML IV SCH (12:51)
[2024-06-23] MEDS: diphenhydrAMINE 50 MG/ML SDV IVPUSH ONE (12:58)
[2024-06-23] MEDS: methylPREDNISolone Sodium Succinate 125 MG/2 ML SDV IVPUSH ONE (13:00)
[2024-06-23] MEDS: Famotidine 20 MG/2 ML SDV IVPUSH ONE (13:03)
[2024-06-23] MEDS: LORazepam 2 MG/ML SDV IVPUSH ONE (13:08)
== END 2024-06-23 15:00 | disposition left against medical advice (07) ==
LOC: JP.ED 11:07
DX: F10.120 Alcohol abuse with intoxication, uncomplicated (principal); J45.909 Unspecified asthma, uncomplicated; F17.210 Nicotine dependence, cigarettes, uncomplicated; Z88.1 Allergy status to other antibiotic agents; Z79.899 Other long term (current) drug therapy; Z86.16 Personal history of COVID-19; Z53.20 Procedure and treatment not carried out because of patient's decision for unspecified reasons; Y90.9 Presence of alcohol in blood, level not specified
CPT/HCPCS: 36415; 74177; 80053; 80305; 80307; 82150; 83690; 85025; 86140; 96361; 96374; 96375; 99285; J1200; J2060; J2470; J2919; J7030; Q9967

== ENCOUNTER 2024-06-24 11:50 | Emergency (ER) | payer MEDICAID ==
[2024-06-24] MEDS: LORazepam 2 MG/ML SDV IM ONE (13:08)
[2024-06-24 13:13] LABS: BASOPHILS PERCENT AUTO 0.1 % (0.1-1.3); HEMATOCRIT 38.9 % (38.4-49.7); HEMOGLOBIN 13.3 g/dL (12.9-16.9); IMMATURE GRAN ABSOLUTE AUTO 0.06 K/uL (0.00-0.23); IMMATURE GRAN PERCENT AUTO 0.6 % (0.0-0.7); LYMPHOCYTES ABSOLUTE AUTO 2.33 K/uL (0.8-3.3); MEAN CORPUSCULAR HEMOGLOBIN 30.1 pg (31.6-35.5); MEAN CORPUSCULAR HGB CONC 34.2 g/dL (31.6-35.5); MONOCYTES ABSOLUTE AUTO 0.93 K/uL (0.20-0.90); MONOCYTES PERCENT AUTO 8.8 % (3.3-12.6); NEUTROPHILS ABSOLUTE AUTO 7.26 K/uL (1.0-7.6); NEUTROPHILS PERCENT AUTO 68.5 % (40.0-78.1); PLATELET COUNT,PLT 263 K/uL (130-375); RED BLOOD CELL COUNT 4.42 M/uL (4.14-5.76); WHITE BLOOD CELL COUNT,WBC 10.6 K/uL (3.2-11.0)
[2024-06-24 13:17] LABS: BASOPHILS ABSOLUTE AUTO 0.01 K/uL (0.00-0.10)
[2024-06-24 13:35] LABS: ALANINE AMINOTRANSFERASE,ALT 25 U/L (12-78); ALBUMIN 3.8 g/dL (3.4-5.0); ALKALINE PHOSPHATASE 72 U/L (46-116); ASPARTATE AMNIOTRANSFERASE,AST 23 U/L (15-37); BILIRUBIN TOTAL 0.6 mg/dL (0.2-1.0); BLOOD UREA NITROGEN,BUN 15 mg/dL (7-18); CALCIUM 8.9 mg/dL (8.5-10.1); CARBON DIOXIDE,CO2 25 mmol/L (21-32); CHLORIDE,CL 110 mmol/L (100-108); CREATININE 0.7 mg/dL (0.8-1.3); EST CRCL DRUG DOSING (CG) 161.67 mL/min; ESTIMATED GFR 123 mL/min (>60); GLUCOSE RANDOM 112 mg/dL (74-106); POTASSIUM,K 4.3 mmol/L (3.6-5.2); PROTEIN TOTAL,TP 7.5 g/dL (6.4-8.2); SODIUM,NA 144 mmol/L (140-148)
[2024-06-24 13:43] LABS: AMPHETAMINES SCREEN, URINE NEGATIVE (NEGATIVE); BARBITURATE SCREEN,URINE NEGATIVE (NEGATIVE); BENZODIAZEPINES SCREEN,URINE PRESUMPTIVE POSITIVE (NEGATIVE); METHADONE SCREEN, URINE NEGATIVE (NEGATIVE); METHAMPHETAMINES SCREEN, URINE NEGATIVE (NEGATIVE); OXYCODONE SCREEN,URINE NEGATIVE (NEGATIVE); PROPOXYPHENE SCREEN,URINE NEGATIVE (NEGATIVE); THC SCREEN,URINE 50 NG/ML PRESUMPTIVE POSITIVE (NEGATIVE)
[2024-06-24 13:54] LABS: ANION GAP 13.3 mmol/L (5.0-14.0)
[2024-06-24] MEDS ORDERED: PHENobarbitaL sodium 260 MG in Sodium Chloride 0.9% 100 ML IV PRN (14:32)
[2024-06-24] MEDS ORDERED: PHENobarbitaL sodium 260 MG in Sodium Chloride 0.9% 100 ML IV ONE (14:32)
[2024-06-24] MEDS ORDERED: Diazepam 2 MG Tab PO ONE (14:38)
[2024-06-24] MEDS ORDERED: MVI, Adult with Vitamin K 10 ML, Thiamine 100 MG, Folic Acid 1 MG, Magnesium Sulf 1 GM/... IV SCH (14:45)
[2024-06-24] MEDS: Diazepam 5 MG Tab PO ONE ×2 (15:23→17:43)
[2024-06-24] MEDS: Sodium Chloride 0.9% 10 ML Syringe FLUSH PRN (15:25)
[2024-06-24] MEDS: MVI, Adult with Vitamin K 10 ML, Thiamine 100 MG, Folic Acid 1 MG, Magnesium Sulf 1 GM/... IV ONE (15:25)
== END 2024-06-24 18:08 ==
LOC: JP.ED 11:50
DX: F10.20 Alcohol dependence, uncomplicated (principal); J45.909 Unspecified asthma, uncomplicated; F17.210 Nicotine dependence, cigarettes, uncomplicated; Z88.1 Allergy status to other antibiotic agents; Z79.899 Other long term (current) drug therapy; Z88.6 Allergy status to analgesic agent; Z86.16 Personal history of COVID-19; Y90.9 Presence of alcohol in blood, level not specified
CPT/HCPCS: 36415; 80053; 80305; 80307; 85025; 96365; 96366; 96372; 99284; A9270; J2060; J3411; J7030; J3490